=== PATIENT | female | born 1970 | race Caucasian/White ===

== ENCOUNTER 2018-11-11 05:17 | Inpatient (IN) | payer BC ==
[~2018-11-11] VITALS: Ht 170.2 cm; Wt 77.0 kg
[2018-11-11 06:18] VITALS: BP 117/77
== END 2018-11-11 11:10 | disposition home or self-care (01) | DRG 520 ==
LOC: ORIP 05:17
PROVIDERS: ADMIT Neurological Surgery; ATTEND Neurological Surgery
PROC: 0SB40ZZ Excision of Lumbosacral Disc, Open Approach (ICD-10-PCS; principal; 2018-11-11)
PROC: 00NY0ZZ Release Lumbar Spinal Cord, Open Approach (ICD-10-PCS; 2018-11-11)
PROC: 4A11X4G Monitoring of Peripheral Nervous Electrical Activity, Intraoperative, External Approach (ICD-10-PCS; 2018-11-11)
DX: M51.17 Intervertebral disc disorders with radiculopathy, lumbosacral region (principal); E11.9 Type 2 diabetes mellitus without complications; G89.29 Other chronic pain
CPT/HCPCS: 72100; J3490; 81025; 82962; J0690; J1100; J2250; J2704; J3010; Q0162; C1760; J0330; J7120